=== PATIENT | female | born 1940 | race Caucasian/White ===

== ENCOUNTER → 2019-02-27 | Outpatient (CLI) | payer BC, MEDICARE | LOC: GMAM 16:58 | PROVIDERS: ATTEND Family Medicine | DX: R60.0 Localized edema (principal) ==

== ENCOUNTER → 2019-03-07 | Outpatient (CLI) | payer MEDICARE, BC | LOC: MAMMO 10:00 | PROVIDERS: ATTEND Family Medicine | DX: Z12.31 Encounter for screening mammogram for malignant neoplasm of breast (principal) ==